=== PATIENT | female | born 1990 | race Caucasian/White ===

== ENCOUNTER → 2016-05-29 | Outpatient (CLI) | payer OTHER ==
[~2016-05-29] MED LIST: LABE20TAB PO; PRENTAB9 PO
[2016-05-29 16:12] LABS: MEAN CORPUSCULAR HEMOGLOBIN 29.9 pg (27.0-33.0); MEAN CORPUSCULAR HGB CONC 31.8 g/dl (32.0-36.5); MEAN CORPUSCULAR VOLUME 93.9 fl (80.0-96.0); RED CELL DISTRIBUTION WIDTH 13.1 % (11.5-14.5); WHITE BLOOD COUNT 17.9 K/mm3 (4.0-10.0)
[2016-05-29 16:29] LABS: ALT/SGPT 19 U/L (12-78); AST/SGOT 11 U/L (15-37); BILIRUBIN,TOTAL 0.1 MG/DL (0.2-1.0); CREATININE FOR GFR 0.55 MG/DL (0.55-1.02); GLOMERULAR FILTRATION RATE > 60.0 (>60)
== END ==
LOC: M LAB 15:17
PROVIDERS: ATTEND Advanced Practice Midwife
DX: R03.0 Elevated blood-pressure reading, without diagnosis of hypertension (principal)

== ENCOUNTER → 2016-06-05 | Outpatient (REF) | payer OTHER | LOC: M LAB REF 12:21 | PROVIDERS: ATTEND Obstetrics & Gynecology | DX: Z34.03 Encounter for supervision of normal first pregnancy, third trimester (principal); Z36 Encounter for antenatal screening of mother ==

== ENCOUNTER 2016-06-19 10:44 | Inpatient (IN) | payer OTHER ==
[2016-06-19] VITALS (12 sets, daily range): BP systolic 118–149; BP diastolic 54–85
[~2016-06-19] VITALS: Ht 170.2 cm; Wt 118.0 kg
[2016-06-19] MEDS ORDERED: miSOPROStol 50 MCG 1/2 TAB (S0191) PO ONE ×2 (11:30→17:00)
[2016-06-19] MEDS ORDERED: TUMS500C PO (11:35)
[2016-06-19] MEDS ORDERED: LABE30TA PO (11:35)
[2016-06-19 12:31] LABS: MEAN CORPUSCULAR HEMOGLOBIN 30.9 pg (27.0-33.0); MEAN CORPUSCULAR HGB CONC 33.7 g/dl (32.0-36.5); MEAN CORPUSCULAR VOLUME 91.6 fl (80.0-96.0); RED CELL DISTRIBUTION WIDTH 12.5 % (11.5-14.5); WHITE BLOOD COUNT 14.6 K/mm3 (4.0-10.0)
[2016-06-19 12:49] LABS: ALT/SGPT 24 U/L (12-78); AST/SGOT 19 U/L (15-37); BILIRUBIN,TOTAL < 0.1 MG/DL (0.2-1.0); CREATININE FOR GFR 0.47 MG/DL (0.55-1.02); GLOMERULAR FILTRATION RATE > 60.0 (>60); URIC ACID 3.1 MG/DL (2.6-6.0)
--- NOTE | 2016-06-19 18:07 | HPEPDOC ---
Obstetrical History & Physical General Date of Admission Jun 19, 2016 at 10:44 History of Present Illness Patient is a 27-year-old female who is a with an CHRISTIANO of 07/07/2016 at 37 weeks and 3 days based off a first trimester ultrasound. She initiated care in her first trimester at [facility]. Her has been complicated with gestational hypertension. She presents to labor and delivery today for an induction of labor at term for gestational hypertension. Her systolic BP's in the office have been ranging from 144 to 160's. She has been on 300 mg of labetolol TID and reports daily use. A 24 hour urine was obtained 04/23/16 with total protein equaling 190.4. Another 24 hour urine was obtained 05/29/16 with the total protein equaling 278.4. She has started reporting headaches that were occurring daily and were short lived to more frequent headaches that have been lasting longer. She reports active movement. Denies leaking of fluid, contractions, or vaginal bleeding. 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 Surgical History: Denies Family History Significant Family History: Asthma (father), Cancer (colon: mother) Social History Marital Status: Single Family situation: Spouse/partner home Psychosocial History: No pertinent psych hx * Smoker: non-smoker Alcohol: denies Drugs: denies Abuse Violence Screening Have you been hit/kicked/slapp: No Have you been sexually assault: No Imunizations Tdap status: declined Influenza Status: current Allergies Coded Allergies: No Known Allergies (Unverified , 05/10/16) Medications Scheduled Labetalol HCl (Labetalol HCl) 300 Mg Tab 300 MG PO TID Multivitamins/ ( 27-0.8 mg) 1 Tab Tab 1 TAB PO DAILY Scheduled PRN Calcium Carbonate (Tums) 500 Mg Chw 500 MG PO PRN PRN PRN HEARTBURN Physical Examination Physical Examination GENERAL: Alert and oriented times three. BREAST: . ABDOMEN: Gravid and non-tender to touch. FETUS: Is vertex (VTX) by sterile vaginal examination (SVE), fetus is vertex ( VTX) by Dk. HEART RATE: Regular rate and rhythm. LUNGS: Clear to auscultation (CTA). EXTREMITIES: Edema present lower extremities +1. No clonus. Deep tendon reflexes (DTRs) + 2. Vital Signs/I&O Vital Signs Date Time Temp Pulse Resp B/P Pulse Ox O2 Delivery O2 Flow Rate FiO2 06/19/16 16:22 81 18 129/54 06/19/16 11:07 97.1 Laboratory Data 24H LABS Laboratory Tests 2 06/19/16 11:17: Serology Scanned Report Hepatitis B Testing 06/19/16 11:59: Creatinine 0.47L, Aspartate Amino Transf (AST/SGOT) 19, Alanine Aminotransferase (ALT/SGPT) 24, Lactate Dehydrogenase 182, Total Bilirubin < 0.1L, Uric Acid 3.1, Glomerular Filtration Rate > 60.0, Urine Random Creatinine 102.0, Urine Random Total Protein 16.7H CBC/BMP Laboratory Tests 06/19/16 11:59 Aspartate Amino Transf (AST/SGOT) 19, Alanine Aminotransferase (ALT/SGPT) 24, Lactate Dehydrogenase 182, Total Bilirubin < 0.1 L, Uric Acid 3.1, Red Blood Count 3.72 L, Mean Corpuscular Volume 91.6, Mean Corpuscular Hemoglobin 30.9, Mean Corpuscular Hemoglobin Concent 33.7, Red Cell Distribution Width 12.5 Urine Culture: No Growth Pertinent Laboratoy Data Blood Type: O+ RBC Antibody Screen: Negative HIV: Negative Rapid Plasma Reagin: Nonreactive Rubella: Immune Chlamydia/Gonorrhea: Negative Group B Streptococcus: Negative Quad Screen Test: Declined Cystic Fibrosis: Declined Anatomy Ultrasound Ultrasound Date: Jun 03, 2016 Placenta Location: Posterior Normal Anatomy: Yes Placenta Previa: No Estimated Weight (grams): 3197 (JEFFREY: 10) Vaginal Examination Dilation: 2cm Effacement: 80+% Station: -3 Cervical Consistency: Soft Cervical Position: Middle Presentation: Cephalic presentation Position: Vertex (occiput) Assessment Heart Rate (FHR): 130 Variability: Moderate Accelerations: Positive Decelerations: None Tocometer Contractions: No Multi-drug resistant Organism: No history of MDRO Assessment/Plan Assessment IUP at 37 weeks 3 days gestation Gestational hypertension Category 1 heart rate tracing Plan Admit to labor and delivery. Labs and IV per protocol. Out of bed ad juan diego. Regular diet. Sequentials while in bed. Misoprostol ordered by mouth. Anticipate cervical ripening. Dr. Dee has been consulted on plan of care and induction of labor. SUSAN PRESCOTT CNM Jun 19, 2016 17:54
--- NOTE | 2016-06-19 18:12 | IPNPDOC ---
Obstetrical Progress Note Date of Service The patient was seen on 06/19/16 at 17:00. Progress Note SUBJECTIVE: Patient has no complaints. She reports some cramping but denies contractions. Reports active movement. OBJECTIVE: heart rate baseline 1:30, moderate variability, positive accelerations, no decelerations. Contractions: none noted. Vital signs: 129/54, 81, 18. ASSESSMENT: IUP at 37 weeks 3 days gestation, gestational hypertension, category 1 heart rate tracing, not in active labor. PLAN: Continue with misoprostol by mouth. Anticipate cervical ripening and cervical change. Patient instructed to let staff know if she has signs or symptoms of preeclampsia. SUSAN PRESCOTT CNM Jun 19, 2016 18:12
[2016-06-19] MEDS: miSOPROStol 50 MCG 1/2 TAB (S0191) PO SCH (21:52)
--- NOTE | 2016-06-19 22:05 | IPNPDOC ---
Obstetrical Progress Note Date of Service The patient was seen on 06/19/16 at 21:52. Progress Note SUBJECTIVE: Patient reports that she feels some cramping and occasional contractions. OBJECTIVE: FHR: 130, moderate variability, positive accelerations, no decelerations. Contractions: one noted that is 50 seconds long. VS: BP at 1928: 135/70 and HR 91; BP at 2116: 118/58, HR 70. ASSESSMENT: IUP @ 37 weeks 3 days gestation, GHTN PLAN: Continue with misoprostol PO. Anticipate cervical ripening. Consider checking patient 4 hours after next dose of Misoprostol. SUSAN PRESCOTT CNM Jun 19, 2016 22:05
[2016-06-20] VITALS (43 sets, daily range): BP systolic 101–152; BP diastolic 51–81
[2016-06-20] MEDS: miSOPROStol 50 MCG 1/2 TAB (S0191) PO SCH ×2 (01:45→05:45)
[2016-06-20] MEDS ORDERED: OXYTOCIN DRIP 30 UNITS in APPROPRIATE DILUENT 1 EA IV SCH (04:00)
[2016-06-20] MEDS: LR 1,000 ML IV SCH ×3 (07:37→22:48)
[2016-06-20] MEDS ORDERED: LACTATED RINGER'S 1000 ML IV ONE (08:00)
[2016-06-20] MEDS ORDERED: FENTANYL 2MCG/ML ROPIVACAINE 0.2% NACL 250 ML CADD As Ordered ONE (09:07)
[2016-06-20 09:20] LABS: MEAN CORPUSCULAR HEMOGLOBIN 30.2 pg (27.0-33.0); MEAN CORPUSCULAR HGB CONC 32.4 g/dl (32.0-36.5); MEAN CORPUSCULAR VOLUME 93.3 fl (80.0-96.0); RED CELL DISTRIBUTION WIDTH 12.2 % (11.5-14.5); WHITE BLOOD COUNT 16.5 K/mm3 (4.0-10.0)
[2016-06-20] MEDS ORDERED: LACTATED RINGER'S 1000 ML IV PRN (11:15)
[2016-06-20] MEDS ORDERED: NALOXONE INJ 0.4 MG/1 ML VIAL (J2310) IV PRN ×3 (11:15→21:45)
[2016-06-20] MEDS ORDERED: FENTANYL/ROPIVACAINE/NACL CADD 250 ML EPIDURAL SCH (11:15)
[2016-06-20] MEDS ORDERED: EPIDURAL COMMENT XX SCH (11:15)
[2016-06-20] MEDS ORDERED: EPIDURAL/PCA KEYS XX PRN (11:15)
[2016-06-20] MEDS ORDERED: REFRIGERATOR IV KEYS XX PRN (11:15)
[2016-06-20] MEDS ORDERED: diphenhydrAMINE INJ 50MG/ML VIAL (J1200) IV PRN (11:15)
[2016-06-20] MEDS ORDERED: ePHEDrine SULFATE 25 MG/5 ML(5MG/ML) SYRINGE IV PRN (11:15)
[2016-06-20] MEDS ORDERED: ONDANSETRON 4MG/2ML VIAL (J2405) IV PRN ×4 (11:15→23:15)
[2016-06-20] MEDS ORDERED: BICITRA 30ML SOLN UDC As Ordered ONE (20:24)
[2016-06-20] MEDS ORDERED: ceFAZolin 2 GM/D5W 50 ML IV BAG (J0690) As Ordered ONE (20:24)
[2016-06-20 20:52] LABS: MEAN CORPUSCULAR HEMOGLOBIN 30.7 pg (27.0-33.0); MEAN CORPUSCULAR HGB CONC 33.5 g/dl (32.0-36.5); MEAN CORPUSCULAR VOLUME 91.5 fl (80.0-96.0); RED CELL DISTRIBUTION WIDTH 12.3 % (11.5-14.5); WHITE BLOOD COUNT 21.2 K/mm3 (4.0-10.0)
[2016-06-20] MEDS ORDERED: LIDOCAINE 2% W/EPIN INJ 20ML **PRES FREE As Ordered ONE (21:20)
[2016-06-20] MEDS ORDERED: SODIUM BICARBONATE 8.4% INJ 50MEQ 50 ML VIAL As Ordered ONE (21:20)
[2016-06-20] MEDS ORDERED: MORPHINE PRES-FREE INJ 10 MG/10 ML VIAL (J2274) As Ordered ONE (21:43)
[2016-06-20] MEDS ORDERED: METOCLOPRAMIDE INJ 10MG/2ML VIAL (J2765) IV PRN (21:45)
[2016-06-20] MEDS ORDERED: NALBUPHINE HCL 10 MG/ML AMP (J2300) IV PRN ×2 (21:45→23:15)
[2016-06-20] MEDS ORDERED: ONDANSETRON 4MG/2ML VIAL (J2405) As Ordered ONE (21:46)
[2016-06-20] MEDS ORDERED: KETOROLAC 60 MG/2 ML VIAL (J1885) As Ordered ONE (21:55)
[2016-06-20 22:23] LABS: CORD GAS ABE V -4.5; CORD GAS HCO3 A 24.7 MEQ/L; CORD GAS HCO3 V 21.2 MEQ/L; CORD GAS O2 SAT A 24.9 %; CORD GAS PCO2 A 58.6 mmHg; CORD GAS PCO2 V 41.3 mmHg; CORD GAS PH A 7.243 UNITS; CORD GAS PH V 7.328 UNITS; CORD GAS PO2 V 23.2 mmHg; CORD GAS SBC A 19.2 MEQ/L; CORD GAS SBC V 19.5 MEQ/L; CORD GAS TCO2 A 26.5 MEQ/L; CORD GAS TCO2 V 22.5 MEQ/L
[2016-06-20] MEDS ORDERED: MEASLES,MUMPS,RUBELLA VACCINE INJ (MMR-II) (90707) SC SCH (23:00)
[2016-06-20] MEDS ORDERED: RHOGAM 300 MCG (1500 IU) INJ (J2790) IM SCH (23:00)
[2016-06-20] MEDS ORDERED: METHYLERGONOVINE MALEATE 0.2 MG TAB PO PRN (23:00)
[2016-06-20] MEDS ORDERED: MOM 30ML SUSPENSION UDC PO PRN (23:00)
[2016-06-20] MEDS ORDERED: NORCO, ANEXSIA 5/325MG TABLET (HYDROcodone/ACETAMINOPHEN) PO PRN (23:00)
[2016-06-20] MEDS ORDERED: fentaNYL 100 MCG/2 ML INJECTION (J3010) As Ordered ONE (23:07)
[2016-06-20] MEDS ORDERED: PERCOCET 5MG/325MG TAB PO PRN (23:15)
[2016-06-20] MEDS ORDERED: MEPERIDINE INJ 25 MG/ML VIAL (J2175) IV PRN (23:15)
[2016-06-20] MEDS ORDERED: fentaNYL 100 MCG/2 ML INJECTION (J3010) IV PRN (23:15)
[2016-06-20] MEDS ORDERED: LR 1,000 ML IV SCH (23:15)
[2016-06-20] MEDS: NORCO, ANEXSIA 5/325MG TABLET (HYDROcodone/ACETAMINOPHEN) PO PRN (23:58)
[2016-06-21] VITALS (11 sets, daily range): BP systolic 115–159; BP diastolic 56–80
[2016-06-21] MEDS: NORCO, ANEXSIA 5/325MG TABLET (HYDROcodone/ACETAMINOPHEN) PO PRN ×5 (04:18→21:36)
[2016-06-21] MEDS: LR 1,000 ML IV SCH ×4 (06:14→19:32)
[2016-06-21 07:03] LABS: MEAN CORPUSCULAR HGB CONC 33.4 g/dl (32.0-36.5); MEAN CORPUSCULAR VOLUME 92.7 fl (80.0-96.0); RED CELL DISTRIBUTION WIDTH 12.3 % (11.5-14.5); WHITE BLOOD COUNT 23.3 K/mm3 (4.0-10.0)
[2016-06-21 07:17] LABS: ALT/SGPT 17 U/L (12-78); AST/SGOT 18 U/L (15-37); BILIRUBIN,TOTAL 0.4 MG/DL (0.2-1.0); CREATININE FOR GFR 0.57 MG/DL (0.55-1.02); GLOMERULAR FILTRATION RATE > 60.0 (>60); URIC ACID 4.3 MG/DL (2.6-6.0)
[2016-06-21] MEDS: DOCUSATE SODIUM 100 MG CAP PO SCH ×2 (07:43→20:11)
[2016-06-21] MEDS: IBUPROFEN 800 MG TAB PO SCH ×2 (07:43→16:12)
[2016-06-21] MEDS: PRENATAL VITAMIN TAB PO SCH (07:43)
[2016-06-21] MEDS ORDERED: CEPACOL LOZENGE PO PRN (10:15)
--- NOTE | 2016-06-21 14:28 | RO ---
DATE OF PROCEDURE: 06/20/2016 Tiffanie is a 25-year-old female 1, para 0 who was admitted at 37-5/7 weeks gestation with gestational hypertension with superimposed preeclampsia. She underwent an induction of Cytotec followed by artificial rupture of membranes and Pitocin induction. She progressed to fully dilated, had a nonreassuring heart rate tracing, recurrent variable late deceleration with minimal variability. While pushing, she had bradycardia down to 90 beats per minute with poor recovery. At this point, a decision was made to proceed with a primary section. PREOPERATIVE DIAGNOSIS: 1. Intrauterine at 37-5/7 weeks gestation with a history of gestational hypertension with superimposed preeclampsia. 2. Nonreassuring heart rate tracing. POSTOPERATIVE DIAGNOSIS: 1. Intrauterine at 37-5/7 weeks gestation with a history of gestational hypertension with superimposed preeclampsia. 2. Nonreassuring heart rate tracing. 3. Tight nuchal cord times one. PROCEDURE: Urgent primary low transverse section. SURGEON: Dr. Julian Dee LIQUID SUGAR MELTER: ANESTHESIA: Epidural. COMPLICATIONS: None. ESTIMATED BLOOD LOSS: 700 mL. SPECIMEN SENT TO THE LAB: Placenta. FINDINGS: Live male in occiput anterior position with a nuchal cord times one. scores 2 and 9. weight 7 pounds 5 ounces. Normal appearing tubes and ovaries. DESCRIPTION OF PROCEDURE: After obtaining informed consent, the patient was taken to the operating room where epidural anesthetic was found to be adequate. She was draped and prepped in the usual sterile fashion in supine position. At this point, a Pfannenstiel incision was made. This was carried down to the fascia. Fascia was incised in midline fashion and carried through laterally. Superior aspect of the fascia was then grasped with two Edgard clamps, tented off and dissected off the rectus muscles sharply. The inferior aspect was dissected off in a similar fashion. Rectus muscles in midline fashion. Peritoneum identified. Peritoneal cavity entered bluntly. Superior and inferior dissection of the peritoneum was then done with good visualization of the bladder. At this point, a Mobius skin retractor was placed , a low-transverse uterine incision was made. was delivered in atraumatic fashion. A nuchal cord was reduced. Cord doubly clamped and cut and infant was handed over to awaiting winery cellar hand. Cord blood and cord gas were sent. Placenta removed manually. Uterus cleared of all clot and debris, and the uterine incision was then repaired in two separate layers of #0 Vicryl suture. Pelvis copiously irrigated with normal saline and suctioned out. Attention turned to the peritoneum which was closed in a running fashion using #2-0 Vicryl. Fascia closed in two separate segments of #0 Vicryl sutures, and the skin was reapproximated in a subcuticular fashion using #3-0 Vicryl on a Akil. Steri-Strips placed. The patient tolerated procedure well. She was then transferred to recovery room in stable condition. NICA
[2016-06-21] MEDS ORDERED: SIMETHICONE 80 MG CHEW TAB PO PRN (21:00)
[2016-06-22] MEDS: IBUPROFEN 800 MG TAB PO SCH ×3 (00:23→17:21)
[2016-06-22] MEDS ORDERED: IBUPROFEN 800 MG TAB PO SCH (01:00)
[2016-06-22] MEDS: NORCO, ANEXSIA 5/325MG TABLET (HYDROcodone/ACETAMINOPHEN) PO PRN ×6 (02:00→22:26)
[2016-06-22 05:27] VITALS: BP 134/63
[2016-06-22] MEDS: DOCUSATE SODIUM 100 MG CAP PO SCH ×2 (07:40→22:25)
[2016-06-22] MEDS: PRENATAL VITAMIN TAB PO SCH (07:40)
[2016-06-22] MEDS: LR 1,000 ML IV SCH ×2 (14:48→22:48)
[2016-06-22 18:01] VITALS: BP 124/58
[2016-06-23] MEDS: IBUPROFEN 800 MG TAB PO SCH ×3 (00:44→15:05)
[2016-06-23] MEDS: NORCO, ANEXSIA 5/325MG TABLET (HYDROcodone/ACETAMINOPHEN) PO PRN ×4 (03:19→15:06)
[2016-06-23] MEDS: LR 1,000 ML IV SCH ×2 (04:49→12:46)
[2016-06-23 06:09] VITALS: BP 143/78
[2016-06-23] MEDS: PRENATAL VITAMIN TAB PO SCH (07:14)
[2016-06-23] MEDS: DOCUSATE SODIUM 100 MG CAP PO SCH (08:17)
[2016-06-23] MEDS ORDERED: COLA100C PO (10:16)
[2016-06-23] MEDS ORDERED: IBUP-1114 PO (10:17)
--- NOTE | 2016-06-23 11:51 | DS.PDOC ---
Discharge Summary General Date of Admission Jun 19, 2016 at 10:44 Date of Discharge 06/23/16 Attending Physician: Julian Dee DO Discharge Summary PROCEDURES PERFORMED DURING STAY: Primary section ADMISSION DIAGNOSES: 1. IUP at 37 weeks 4 days gestation. 2. Gestational hypertension. DISCHARGE DIAGNOSES: 1. Low transverse primary section. 2. Day 3 postoperative HISTORY OF PRESENT ILLNESS: Patient is a 25-year-old now 001 who is admitted for an induction of labor to labor and delivery for gestational hypertension. She is presenting with more frequent headaches. Patient was on 300 mg labetalol 3 times a day. Patient had 4 doses of misoprostol during her induction followed by Pitocin IV and AROM. The decision was made to section the patient due to a nonreassuring heart rate tracing, arrest of dilatation, and the beginning of a fever. DISCHARGE MEDICATIONS: Please see below. ALLERGIES: Please see below. PHYSICAL EXAMINATION ON DISCHARGE: VITAL SIGNS: Please see below. RESPIRATORY EXAMINATION: Respirations regular. Patient not using accessory muscles. ABDOMINAL EXAMINATION: Low transverse abdominal incision is approximated. Steri- Strips present. No drainage present. EXTREMITIES: Bilateral lower legs and feet with 2-3+ pitting edema. SKIN: Warm and dry. No rashes. NEUROLOGICAL EXAMINATION: A and O 3 LABORATORY DATA: Please see below. DISCHARGE CONDITION: Stable. ACTIVITY: As tolerated. DIET: Regular. DISCHARGE PLAN AND INSTRUCTIONS: 1. Patient discharged to home.. 2. Reviewed symptoms of preeclampsia with patient instructed to call with any of the symptoms. Reviewed Motrin and Tylenol as needed for pain. Prescription sent to pharmacy for Percocet. Education done on mastitis, hemorrhage , breast care, pelvic rest, incision care, signs of infection at the incision site, DVT, depression. 3. Follow up in the office in 2 weeks for an incision check and 6 weeks for visit. Vital Signs/I&Os Vital Signs Date Time Temp Pulse Resp B/P Pulse Ox O2 Delivery O2 Flow Rate FiO2 06/23/16 11:00 18 Room Air 06/23/16 06:09 98.2 100 143/78 06/22/16 18:01 97 Medications Scheduled Docusate Sodium (Colace) 100 Mg Cap 100 MG PO BID Multivitamins/ ( 27-0.8 mg) 1 Tab Tab 1 TAB PO DAILY Scheduled PRN Ibuprofen (Ibuprofen) 400 Mg Tab 800 MG PO Q8HP PRN PRN PAIN Allergies Coded Allergies: No Known Allergies (Unverified , 05/10/16) SUSAN PRESCOTT CNM Jun 23, 2016 11:51
== END 2016-06-23 15:05 | disposition home or self-care (01) | DRG 540 ==
LOC: M LDI 10:44 → M OBS 06-20 23:41
PROVIDERS: ADMIT Obstetrics & Gynecology; ATTEND Obstetrics & Gynecology
PROC: 3E0DXGC Introduction of Other Therapeutic Substance into Mouth and Pharynx, External Approach (ICD-10-PCS; 2016-06-19)
PROC: 10907ZC Drainage of Amniotic Fluid, Therapeutic from Products of Conception, Via Natural or Artificial Opening (ICD-10-PCS; 2016-06-19)
PROC: 10D00Z1 Extraction of Products of Conception, Low, Open Approach (ICD-10-PCS; principal; 2016-06-20 21:35)
DX: O13.4 Gestational [pregnancy-induced] hypertension without significant proteinuria, complicating childbirth (principal); O69.89X0 Labor and delivery complicated by other cord complications, not applicable or unspecified; Z37.0 Single live birth; Z3A.37 37 weeks gestation of pregnancy; O14.94 Unspecified pre-eclampsia, complicating childbirth

== ENCOUNTER → 2017-04-20 | Outpatient (CLI) | payer OTHER ==
[~2017-04-20] MED LIST changes: +COLA100C5 PO; +IBUP-1114 PO; +LABE30TA PO; +TUMS500C PO
== END ==
LOC: M OUTALCOH 12:41
PROVIDERS: ATTEND Psychiatry & Neurology Psychiatry
DX: F11.10 Opioid abuse, uncomplicated (principal); F12.10 Cannabis abuse, uncomplicated

== ENCOUNTER 2017-04-29 15:40 | Outpatient (RCR) | payer OTHER | END 2017-05-10 | LOC: M OUTALCOH 15:40 | DX: F11.10 Opioid abuse, uncomplicated (principal); F12.10 Cannabis abuse, uncomplicated ==

== ENCOUNTER 2017-05-14 13:00 | Outpatient (RCR) | payer MEDICAID, OTHER | END 2017-06-10 | LOC: M OUTALCOH 13:00 | DX: F11.10 Opioid abuse, uncomplicated (principal); F12.10 Cannabis abuse, uncomplicated ==

== ENCOUNTER → 2017-11-19 | Outpatient (REF) | payer MEDICAID | LOC: M LAB REF 13:52 | DX: D48.5 Neoplasm of uncertain behavior of skin (principal) ==

== ENCOUNTER → 2018-06-01 | Outpatient (CLI) | payer OTHER ==
[~2018-06-01] MED LIST changes: +LABE300T2 PO; -LABE30TA PO
--- NOTE | 2018-06-02 07:50 | REP ---
Clinical: Dating and viability. Technique: Transabdominal first trimester obstetrical ultrasound with color Doppler evaluation. Findings: Single live early intrauterine is appreciated. Gestational sac with yolk sac and pole identified. [place]-rump length of 3.4 cm corresponds to 10 weeks 2 days gestational age with estimated date of delivery 12/26/2018 . heart rate equals 168 beats per minute. No gross abnormalities are identified. Impression: Single live early intrauterine at 10 weeks 2 days gestational age. Complete anatomical assessment should be performed and 19-20 weeks. Electronically Signed by Campos Montes MD 06/02/2018 07:43 A
== END ==
LOC: M RAD 16:57
PROVIDERS: ATTEND Nurse Practitioner Family
DX: Z32.01 Encounter for pregnancy test, result positive (principal); Z36.89 Encounter for other specified antenatal screening; Z3A.10 10 weeks gestation of pregnancy

== ENCOUNTER 2018-06-21 02:58 | Emergency (ER) | payer MEDICAID, OTHER ==
[~2018-06-21] VITALS: Ht 170.2 cm; Wt 127.2 kg
[2018-06-21 03:02] VITALS: BP 142/83
[2018-06-21] MEDS ORDERED: CETI10TA (03:16)
[2018-06-21] MEDS ORDERED: KLON1TAB (03:16)
[2018-06-21] MEDS ORDERED: DEXT10CA5 (03:16)
[2018-06-21] MEDS ORDERED: FLUTISP (03:16)
[2018-06-21] MEDS ORDERED: methylPREDNISolone INJ 125 MG/2 ML VIAL (J2930) IM ONE (03:30)
[2018-06-21] MEDS ORDERED: PRED20TA PO (03:32)
== END 2018-06-21 04:12 | disposition home or self-care (01) ==
LOC: M ED 02:58 → EDSEX 02:58 → EDBD 02:58 → M ED 04:12
DX: L50.0 Allergic urticaria (principal); J45.909 Unspecified asthma, uncomplicated; Z79.899 Other long term (current) drug therapy
CPT/HCPCS: 96372; 99283; J2930

== ENCOUNTER → 2018-07-04 | Outpatient (CLI) | payer MEDICAID ==
[~2018-07-04] MED LIST changes: +CETI10TA; +DEXT10CA5; +FLUTISP; +KLON1TAB; +PRED20TA PO
--- NOTE | 2018-07-06 12:28 | REP ---
Right ankle four views: There are no comparisons. There is circumferential soft tissue edema. There is no fracture or dislocation. The mortise is symmetric. Mineralization is normal. Impression: Circumferential soft tissue edema. No fracture or dislocation. Electronically Signed by Fermin Daniels MD 07/04/2018 09:05 A
== END ==
LOC: M RAD 08:40
PROVIDERS: ATTEND Nurse Practitioner Family
DX: M25.571 Pain in right ankle and joints of right foot (principal)

== ENCOUNTER → 2018-11-09 | Outpatient (REF) | payer OTHER ==
[2018-11-09 22:26] LABS: APPEARANCE, URINE CLEAR (CLEAR); BACTERIA, URINE AUTO 2+ (NEGATIVE); BILIRUBIN, URINE AUTO NEGATIVE (NEGATIVE); BLOOD, URINE BLOOD 1+ (NEGATIVE); COLOR, URINE YELLOW (YELLOW); GLUCOSE, URINE (UA) AUTO NEGATIVE (NEGATIVE); KETONE, URINE AUTO NEGATIVE (NEGATIVE); LEUKOCYTE ESTERASE, URINE AUTO 1+ (NEGATIVE); MUCUS, URINE SMALL (NEGATIVE); NITRITE, URINE AUTO POSITIVE (NEGATIVE); PROTEIN, URINE AUTO NEGATIVE (NEGATIVE); RBC, URINE AUTO 4 /HPF (0-3); SPECIFIC GRAVITY URINE AUTO 1.012 (1.002-1.035); SQUAMOUS EPITHELIAL CELL UR AU 1 /HPF (0-6); UROBILINOGEN, URINE AUTO 0.2 mg/dL (0.0-2.0); WBC, URINE AUTO 70 /HPF (0-3)
[2018-11-09 23:42] LABS: CHLAMYDIA DNA AMPLIFICATION NEGATIVE (NEGATIVE); GC DNA AMPLIFICATION NEGATIVE (NEGATIVE)
[2018-11-15 00:06] LABS: HSV-1 DNA Positive (Negative); HSV-2 DNA Negative (Negative)
== END ==
LOC: M LAB REF 10:45
PROVIDERS: ATTEND Physician Assistant Medical
DX: N39.0 Urinary tract infection, site not specified (principal)

== ENCOUNTER 2019-03-05 20:51 | Emergency (ER) | payer MEDICAID, OTHER ==
[~2019-03-05] VITALS: Ht 170.2 cm; Wt 109.0 kg
[2019-03-05 20:51] VITALS: BP 147/73
[2019-03-05] MEDS ORDERED: TRAZ-252 (21:26)
[2019-03-05] MEDS ORDERED: HYDR-643 (21:26)
[2019-03-05] MEDS ORDERED: ZOLP10TA2 (21:26)
[2019-03-05] MEDS ORDERED: birth control PO (21:26)
[2019-03-05 22:22] LABS: HEMATOCRIT 35.2 % (36.0-47.0); HEMOGLOBIN 11.4 g/dl (12.0-15.5); MEAN CORPUSCULAR HEMOGLOBIN 28.9 pg (27.0-33.0); MEAN CORPUSCULAR HGB CONC 32.4 g/dl (32.0-36.5); MEAN CORPUSCULAR VOLUME 89.1 fl (80.0-96.0); PLATELET COUNT, AUTOMATED 247 10^3/uL (150-450); RED BLOOD COUNT 3.95 10^6/uL (4.00-5.40); WHITE BLOOD COUNT 7.3 10^3/uL (4.0-10.0)
[2019-03-05 22:33] LABS: AMPHETAMINES LEVEL URINE POSITIVE (NEGATIVE); BARBITURATES URINE NEGATIVE (NEGATIVE); BENZODIAZEPINES URINE NEGATIVE (NEGATIVE); CANNABINOIDS URINE POSITIVE (NEGATIVE); COCAINE METABOLITE URINE NEGATIVE (NEGATIVE); METHADONE URINE NEGATIVE (NEGATIVE); OPIATES URINE POSITIVE (NEGATIVE); PHENCYCLIDINE URINE NEGATIVE (NEGATIVE)
[2019-03-05 22:43] LABS: HCG, SERUM QUALITATIVE NEGATIVE (NEGATIVE)
[2019-03-05 22:51] LABS: ACETAMINOPHEN LEVEL < 2.0 UG/ML (10.0-30.0); ALT/SGPT 19 U/L (12-78); BILIRUBIN,DIRECT < 0.1 MG/DL (0.0-0.2); BILIRUBIN,TOTAL 0.2 MG/DL (0.2-1.0); BLOOD UREA NITROGEN 13 MG/DL (7-18); CALCIUM LEVEL 8.6 MG/DL (8.5-10.1); CARBON DIOXIDE LEVEL 27 MEQ/L (21-32); CHLORIDE LEVEL 110 MEQ/L (98-107); ETHYL ALCOHOL (ETHANOL) < 0.003 % (0.000-0.010); GLOMERULAR FILTRATION RATE > 60.0 (>60); GLUCOSE, FASTING 93 MG/DL (70-100); SALICYLATE LEVEL < 1.7 MG/DL (5.0-30.0); SODIUM LEVEL 141 MEQ/L (136-145); THYROID STIMULATING HORMONE 0.986 uIU/ML (0.358-3.740); TOTAL PROTEIN 6.3 GM/DL (6.4-8.2)
== END 2019-03-06 02:00 | disposition home or self-care (01) ==
LOC: M ED 20:51
DX: F12.10 Cannabis abuse, uncomplicated (principal); F11.10 Opioid abuse, uncomplicated; S10.96XA Insect bite of unspecified part of neck, initial encounter; S20.369A Insect bite (nonvenomous) of unspecified front wall of thorax, initial encounter; S60.561A Insect bite (nonvenomous) of right hand, initial encounter; S60.562A Insect bite (nonvenomous) of left hand, initial encounter; S50.861A Insect bite (nonvenomous) of right forearm, initial encounter; S50.862A Insect bite (nonvenomous) of left forearm, initial encounter; W57.XXXA Bitten or stung by nonvenomous insect and other nonvenomous arthropods, initial encounter; Y92.009 Unspecified place in unspecified non-institutional (private) residence as the place of occurrence of the external cause; Y93.89 Activity, other specified; Y99.8 Other external cause status; J45.909 Unspecified asthma, uncomplicated; F10.11 Alcohol abuse, in remission; Z79.3 Long term (current) use of hormonal contraceptives; Z79.899 Other long term (current) drug therapy
CPT/HCPCS: 36415; 80048; 80076; 80307; 84443; 84703; 85027; 99284; G0480

== ENCOUNTER → 2019-09-21 | Outpatient (CLI) | payer OTHER ==
[~2019-09-21] MED LIST changes: +HYDR-643; +TRAZ-252; +ZOLP10TA2; +birth control PO
== END ==
LOC: M LABSMTC 13:18
PROVIDERS: ATTEND Family Medicine
DX: Z20.828 Contact with and (suspected) exposure to other viral communicable diseases (principal)
CPT/HCPCS: C8903; U0003

== ENCOUNTER 2020-02-19 20:55 | Emergency (ER) | payer OTHER ==
[~2020-02-19] VITALS: Ht 170.2 cm; Wt 90.7 kg
[2020-02-19 21:21] VITALS: BP 154/70
[2020-02-19 21:52] LABS: HEMATOCRIT 36.8 % (36.0-47.0); HEMOGLOBIN 11.9 g/dl (12.0-15.5); MEAN CORPUSCULAR HEMOGLOBIN 28.3 pg (27.0-33.0); MEAN CORPUSCULAR HGB CONC 32.3 g/dl (32.0-36.5); MEAN CORPUSCULAR VOLUME 87.6 fl (80.0-96.0); PLATELET COUNT, AUTOMATED 320 10^3/uL (150-450); WHITE BLOOD COUNT 9.5 10^3/uL (4.0-10.0)
[2020-02-19 22:28] LABS: AMPHETAMINES LEVEL URINE POSITIVE (NEGATIVE); BARBITURATES URINE NEGATIVE (NEGATIVE); BENZODIAZEPINES URINE POSITIVE (NEGATIVE); CANNABINOIDS URINE POSITIVE (NEGATIVE); COCAINE METABOLITE URINE NEGATIVE (NEGATIVE); METHADONE URINE NEGATIVE (NEGATIVE); OPIATES URINE NEGATIVE (NEGATIVE); PHENCYCLIDINE URINE NEGATIVE (NEGATIVE)
[2020-02-19 22:38] LABS: ALBUMIN 3.8 GM/DL (3.2-5.2); ALT/SGPT 25 U/L (12-78); BILIRUBIN,DIRECT 0.1 MG/DL (0.0-0.2); BILIRUBIN,TOTAL 0.3 MG/DL (0.2-1.0); BLOOD UREA NITROGEN 26 MG/DL (7-18); CARBON DIOXIDE LEVEL 27 MEQ/L (21-32); CHLORIDE LEVEL 107 MEQ/L (98-107); CREATININE FOR GFR 0.86 MG/DL (0.55-1.30); ETHYL ALCOHOL (ETHANOL) < 0.003 % (0.000-0.010); GLOMERULAR FILTRATION RATE > 60.0 (>60); GLUCOSE, FASTING 86 MG/DL (70-100); POTASSIUM SERUM 3.7 MEQ/L (3.5-5.1); SALICYLATE LEVEL < 1.7 MG/DL (5.0-30.0); SODIUM LEVEL 139 MEQ/L (136-145); TOTAL PROTEIN 7.7 GM/DL (6.4-8.2)
[2020-02-19 22:39] LABS: ACETAMINOPHEN LEVEL < 2.0 UG/ML (10.0-30.0)
== END 2020-02-20 00:21 | disposition home or self-care (01) ==
LOC: M ED 20:55
DX: F43.0 Acute stress reaction (principal); F32.9 Major depressive disorder, single episode, unspecified; F41.9 Anxiety disorder, unspecified; Z79.3 Long term (current) use of hormonal contraceptives; Z79.899 Other long term (current) drug therapy
CPT/HCPCS: 80048; 80076; 80307; 84443; 85027; 99284; G0480

== ENCOUNTER 2020-09-17 09:19 | Emergency (ER) | payer OTHER ==
[2020-09-17 11:53] LABS: HEMATOCRIT 37.4 % (36.0-47.0); HEMOGLOBIN 12.1 g/dl (12.0-15.5); MEAN CORPUSCULAR HGB CONC 32.4 g/dl (32.0-36.5); MEAN CORPUSCULAR VOLUME 89.7 fl (80.0-96.0); PLATELET COUNT, AUTOMATED 269 10^3/uL (150-450); RED BLOOD COUNT 4.17 10^6/uL (4.00-5.40); WHITE BLOOD COUNT 10.2 10^3/uL (4.0-10.0)
[2020-09-17 12:27] LABS: ACETAMINOPHEN LEVEL < 2.0 UG/ML (10.0-30.0); ALBUMIN 3.6 GM/DL (3.2-5.2); ALT/SGPT 26 U/L (12-78); BILIRUBIN,DIRECT 0.1 MG/DL (0.0-0.2); BILIRUBIN,TOTAL 0.3 MG/DL (0.2-1.0); BLOOD UREA NITROGEN 22 MG/DL (7-18); CALCIUM LEVEL 8.9 MG/DL (8.5-10.1); CARBON DIOXIDE LEVEL 28 MEQ/L (21-32); CHLORIDE LEVEL 109 MEQ/L (98-107); CPK CREATINE PHOSPHOKINASE 451 U/L (26-192); ETHYL ALCOHOL (ETHANOL) < 0.003 % (0.000-0.010); GLOMERULAR FILTRATION RATE > 60.0 (>60); GLUCOSE, FASTING 89 MG/DL (70-100); SALICYLATE LEVEL < 1.7 MG/DL (5.0-30.0); SODIUM LEVEL 142 MEQ/L (136-145); TOTAL PROTEIN 7.3 GM/DL (6.4-8.2)
[2020-09-17 12:28] LABS: HCG, SERUM QUALITATIVE NEGATIVE (NEGATIVE)
[2020-09-17 12:30] VITALS: BP 109/53
--- NOTE | 2020-09-17 12:56 | REPVR ---
PROCEDURE INFORMATION: Exam: CT Head Without Contrast Exam date and time: 09/17/2020 10:03 AM Age: 29 years old Clinical indication: Altered mental status/memory loss TECHNIQUE: Imaging protocol: Computed tomography of the head without contrast. Radiation optimization: All CT scans at this facility use at least one of these dose optimization techniques: automated exposure control; mA and/or kV adjustment per patient size (includes targeted exams where dose is matched to clinical indication); or iterative reconstruction. COMPARISON: No relevant prior studies available. FINDINGS: Brain: No acute intracranial hemorrhage, cerebral edema, or midline shift. Cerebral ventricles: No hydrocephalus. Bones/joints: No acute fracture. Paranasal sinuses: There is no acute sinusitis. Mastoid air cells: Visualized mastoid air cells are well aerated. Orbital cavity: Unremarkable as visualized. Soft tissues: Unremarkable. IMPRESSION: No acute intracranial abnormality. Electronically signed by: Usman Gardner On 09/17/2020 12:55:59 PM
--- NOTE | 2020-09-17 13:00 | REP ---
INDICATION: altered mental status. COMPARISON: None. TECHNIQUE: Single portable AP view of the chest was performed. FINDINGS: There is no acute infiltrate or pulmonary edema. Lungs are clear. The heart is not significantly enlarged. The mediastinal silhouette is unremarkable. The visualized osseous structures are intact. IMPRESSION: No acute pulmonary disease. <Electronically signed by Fermin Abbasi > 09/17/20 [id number]
[2020-09-17] MEDS ORDERED: LORazepam 0.5 MG TAB PO STA (13:51)
[2020-09-17 14:27] LABS: AMPHETAMINES LEVEL URINE POSITIVE (NEGATIVE); BARBITURATES URINE NEGATIVE (NEGATIVE); BENZODIAZEPINES URINE POSITIVE (NEGATIVE); CANNABINOIDS URINE NEGATIVE (NEGATIVE); COCAINE METABOLITE URINE NEGATIVE (NEGATIVE); METHADONE URINE NEGATIVE (NEGATIVE); OPIATES URINE NEGATIVE (NEGATIVE); PHENCYCLIDINE URINE NEGATIVE (NEGATIVE)
--- NOTE | 2020-09-17 15:10 | ED PDOC ---
Post-Departure Follow-Up ED Attending Note Seen with resident. 29 you F BIB EMS found in her vehicle asleep. On arrival was alert oriented x3 denied complaint, thought maybe she had slept walked. Bloodwork and CT scan unrevealing. Gave a urine sample but refused to wait for results, insisted upon leaving ED. She was found to be alert and oriented x3. She denied any suicidal ideation and contracted for safety. She was found to have full medical decision making capacity and so signed herself out against medical advice. She left the ED before discharge instructions could be created. A urine culture is pending. She was verbally encourage to return to the ED at any time to complete her evaluation if she changed her mind. MARIA ANTONIA BRINK MD September 17, 2020 15:10
--- NOTE | 2020-09-17 20:08 | ECGEPIP ---
[facility] - ED Test Date: 2020-09-17 Pat Name: CHRISTINE KRAMER Department: Room: - Gender: Female Mortgage Processing Clerk: SONYA : 1990 Requested By: MARIA ANTONIA Lazo Order Number: [id number] Reading MD: Brenda Ortiz Measurements Intervals [place] Rate: 61 P: 62 SD: 144 QRS: 56 QRSD: 94 T: 33 QT: 466 QTc: 469 Interpretive Statements Normal sinus rhythm irbbb NSTTW abnormalities no prior Electronically Signed on 09-17-2020 20:07:29 EDT by Brenda Ortiz
== END 2020-09-17 14:15 | disposition left against medical advice (07) ==
LOC: M ED 09:19 → EDBD 09:19 → M ED 14:15
DX: R41.82 Altered mental status, unspecified (principal); Z53.9 Procedure and treatment not carried out, unspecified reason; I45.19 Other right bundle-branch block; Z79.3 Long term (current) use of hormonal contraceptives; Z79.899 Other long term (current) drug therapy

== ENCOUNTER → 2022-07-07 | Outpatient (CLI) | payer OTHER ==
[~2022-07-07] MED LIST changes: -LABE300T2 PO; +LABE300T55 PO
== END ==
LOC: M WHC 12:00
PROVIDERS: ATTEND Surgery
DX: N63.20 Unspecified lump in the left breast, unspecified quadrant (principal)

== ENCOUNTER 2025-04-19 14:04 | Emergency (ER) | payer OTHER ==
[~2025-04-19] VITALS: Ht 175.3 cm; Wt 132.2 kg
[~2025-04-19 14:04] MED LIST changes: -KLON1TAB; +KLON1TAB13; +LABE300T28 PO; -LABE300T55 PO; -TRAZ-252; +TRAZ-252 PO; +ZOLP10TA11; -ZOLP10TA2
[2025-04-19] MEDS ORDERED: SPIR50TA4 (14:25)
[2025-04-19] MEDS ORDERED: METF-838 (14:25)
[2025-04-19] MEDS ORDERED: PROP10TA56 (14:25)
[2025-04-19] MEDS ORDERED: LORA-1041 (14:25)
[2025-04-19] MEDS ORDERED: CLON-412 (14:25)
[2025-04-19] MEDS ORDERED: ZOLO100T (14:27)
[2025-04-19] MEDS ORDERED: SUBOXONE (14:27)
[2025-04-19] MEDS ORDERED: ISOVUE-370 76% 100 ML VIAL As Ordered ONE (14:59)
[2025-04-19 15:24] LABS: AMPHETAMINES LEVEL URINE NEGATIVE (NEGATIVE); BARBITURATES URINE NEGATIVE (NEGATIVE)
[2025-04-19 15:25] LABS: BENZODIAZEPINES URINE NEGATIVE (NEGATIVE); CANNABINOIDS URINE NEGATIVE (NEGATIVE); COCAINE METABOLITE URINE NEGATIVE (NEGATIVE); METHADONE URINE NEGATIVE (NEGATIVE); OPIATES URINE NEGATIVE (NEGATIVE); PHENCYCLIDINE URINE NEGATIVE (NEGATIVE)
[2025-04-19 16:30] VITALS: O2SAT 98
[2025-04-19 16:39] VITALS: BP 160/59; TEMP 98.2
== END 2025-04-19 16:56 | disposition home or self-care (01) ==
LOC: M ED 14:04 → EDBD 14:04 → M ED 16:56
DX: S80.11XA Contusion of right lower leg, initial encounter (principal); S20.20XA Contusion of thorax, unspecified, initial encounter; V47.5XXA Car driver injured in collision with fixed or stationary object in traffic accident, initial encounter; K76.0 Fatty (change of) liver, not elsewhere classified; M50.20 Other cervical disc displacement, unspecified cervical region; M50.320 Other cervical disc degeneration, mid-cervical region, unspecified level; F41.1 Generalized anxiety disorder; F32.A Depression, unspecified; F17.200 Nicotine dependence, unspecified, uncomplicated; F10.10 Alcohol abuse, uncomplicated; Z79.4 Long term (current) use of insulin; Z79.899 Other long term (current) drug therapy; Y99.9 Unspecified external cause status; Y93.89 Activity, other specified; Y92.9 Unspecified place or not applicable
CPT/HCPCS: 36415; 70450; 71260; 72125; 80047; 80307; 82077; 99284; Q9967